=== PATIENT | female | born 1965 | race Caucasian/White ===

== ENCOUNTER 2016-09-08 19:53 | Emergency (ER) | payer OTHER ==
[2016-09-08 20:11] VITALS: BP 166/91; PULSE 92; RESP 18; TEMP 98.4; O2SAT 98
[2016-09-08] MEDS ORDERED: NS 500 ML IV ONE (20:11)
--- NOTE | 2016-09-08 20:11 | UCPHY ---
H & P Patient Type: New Chief Complaint Nursing Narrative: PT REPORTS FEELING COLD, CLAMMY. PT ALSO REPORTS NUMBNESS IN RIGHT FOREARM AND RIGHT LEG. PT REPORTS JAW PAIN. SYMPOTOMS ONSET 1729 WHILE WORKING OUT. HPI/ROS: HPI CHIEF COMPLAINT: Right-sided arm and leg tingling, right-sided arm and leg heaviness, abrupt in onset of 5:30 p.m. HISTORY OF PRESENT ILLNESS: This patient very pleasant 51-year-old female she denies any significant medical or surgical history does not take any daily medications, she presents to the urgent care by private vehicle with her family after she states she was working out on elliptical 5:30 p.m. she does this regularly. She comes to the Urgent Care complaining that while on the elliptical she felt as if she could not go any further and had to stop. She thought that maybe she needs to eat dinner blood sugar was low. She stopped her elliptical work out shortly after she noticed that her right arm and right leg were feeling heavy ear and tingling down that side she also felt some tingling in the right side of her face. She denies headache, nausea, vomiting. She does not appear very anxious. Of note on exam here in the urgent care promptly after arrival she is complaining of right arm or right leg heaviness and tingling. On exam her cranial nerves are intact, there is no focal neuro deficit that I can appreciate , she does complain of tingling right upper extremity right lower extremity she denies chest pain or shortness of breath. She does tell me that these feel heavier than left side. However I do not appreciate weakness. Given this patient is a young healthy lady with tingling in the right side of her face, right-sided arm, right-sided leg and heaviness in her right side of her body I am concerned this possibly be a very small stroke TIA versus CVA. It may be anxiety. Will perform a rapid EKG and IV will be established 911 will be called will ask for an ambulance to emergently transfer her to [facility] emergency room I will touch base with them. The is at bedside and so is children they understand. They are agreeable to go to transfer to [facility] emergency room by ambulance. Technically she is still in the window of tPA given that she is only 3 hours out. However her NIH stroke scale is very low here and it is unclear if this is truly a focal stroke. Upon arrival here to the urgent care the patient's NIH stroke scale of a 1 and this is due to for subjective heaviness of the right side and tingling or sensory deficit Right arm and right leg Past Medical History: denies medical history Past Surgical History: Denies surgical history Social History: Denies use of drugs alcohol tobacco products Family History:Noncontributory ROS REVIEW OF SYSTEMS: A comprehensive 10 point review of systems is otherwise negative aside from elements mentioned in the history of present illness. Exam Constitutional anxious-appearing, triage nursing summary reviewed, vital signs reviewed, awake/alert. Eyes normal conjunctivae and sclera, EOMI, PERRLA. HENT normal inspection, atraumatic, moist mucus membranes, no epistaxis, neck supple/ no meningismus, no raccoon eyes. Respiratory clear to auscultation bilaterally, normal breath sounds, no respiratory distress, no wheezing. Cardiovascular rate normal, regular rhythm, no murmur, no edema, distal pulses normal. Gastrointestinal soft, non-tender, no rebound, no guarding, normal bowel sounds, no distension, no pulsatile mass. Genitourinary no CVA tenderness. Musculoskeletal no midline vertebral tenderness, full range of motion, no calf swelling, no tenderness of extremities, no meningismus, good pulses, neurovascularly intact. Skin pink, warm, & dry, no rash, skin atraumatic. Neurologic this patient appears well, no focal neuro deficit, I do not appreciate a focal weakness on the right side however patient complains of heaviness in the right arm heaviness and right leg tingling the right side of the face tingling right arm and right leg, this is different from her left side. awake, alert and oriented x 3, AAOx3, moves all 4 extremities equally, motor intact, sensory intact, CN II-XII intact, normal cerebellar, normal vision , normal speech. Psychiatric normal mood/affect. Heme/Lymph/Immune no lymphadenopathy. Differential Diagnosis: includes but is not limited to in no particular acute anxiety, panic attack, TIA, CVA, electrolyte abnormality Medical Decision Making: The patient had an IV established be called for emergent ambulance transport to [facility] emergency room. I will notify [facility] ER attending that this patient is coming in. Patient had a quick EKG. And we will appropriately transfer this patient to [place]. Re-evaluation: 2030: this time I have spoke with [facility] Emergency room and spoke with the attending Dr. moe who agrees to accept this patient. She understands this patient be coming by ambulance to the emergency room. Again on exam I do not appreciate focal neuro deficit patient is complaining of heaviness right arm right leg and tingling. She needs CVA rule out. EKG interpretation by me on record in [employer] system. Impression the time of EKG 2026, this is sinus rhythm rate of 86 there is minimal motion artifact however I do not appreciate acute ischemic change. 2031: at this time ambulance has placed the patient back in the ambulance and is transported patient to [facility] emergency room. Source: Patient - Personal History Current Tetanus Diphtheria and Acellular Pertussis (TDAP): Yes - Medical/Surgical History Hx Asthma: No Hx Chronic Respiratory Disease: No Hx Diabetes: No Hx Cardiac Disease: No Hx Renal Disease: No Hx Cirrhosis: No Hx Alcoholism: No Hx HIV/AIDS: No Hx Splenectomy or Spleen Trauma: No Other PMH: TONSILECTOMY - Family History Significant Family History: No pertinent family hx - Social History Smoking Status: Never smoked Constitutional: Initial Vital Signs Temperature (C) 36.9 C 09/08/16 20:08 Heart Rate 92 09/08/16 20:08 Respiratory Rate 18 09/08/16 20:08 Blood Pressure 166/91 H 09/08/16 20:08 O2 Sat (%) 98 09/08/16 20:08 O2 Delivery Mode Room Air Allergies/Adverse Reactions: Penicillins Allergy (Verified 09/08/16 20:34) Home Medications: Medication Instructions Recorded Control 09/08/16 Medical Decision Making - Data Points Laboratory Results: 09/08/16 09/08/16 09/08/16 19:58 19:58 19:58 WBC Pending RBC Pending Hgb Pending Hct Pending MCV Pending MCH Pending MCHC Pending RDW Pending Plt Count Pending MPV Pending Neut % (Auto) Pending Lymph % (Auto) Pending Maries % (Auto) Pending Eos % (Auto) Pending Baso % (Auto) Pending Nucleat RBC Rel Count Pending Absolute Neuts (auto) Pending Absolute Lymphs (auto) Pending Absolute Monos (auto) Pending Absolute Eos (auto) Pending Absolute Basos (auto) Pending Absolute Nucleated RBC Pending Immature Gran % Pending Immature Gran # Pending PT Pending INR Pending APTT Pending D-Dimer Pending Sodium Pending Potassium Pending Chloride Pending Carbon Dioxide Pending Anion Gap Pending BUN Pending Creatinine Pending Estimated GFR Pending Glucose Pending Calcium Pending Magnesium Pending Total Bilirubin Pending Conjugated Bilirubin Pending Unconjugated Bilirubin Pending AST Pending ALT Pending Alkaline Phosphatase Pending NT-Pro-B Natriuret Pep Pending Total Protein Pending Albumin Pending Lipase Pending Departure - Departure Disposition: Acute Care Hospital Not [facility] Clinical Impression: Tingling of right arm and right side of face Condition: Fair - PQRS PQRS Measurement: n/a
--- NOTE | 2016-09-08 20:28 | CPEKG ---
Heart Rate: 86 RR Interval: 698 P-R Interval: 127 QRSD Interval: 94 QT Interval: 376 QTC Interval: 450 P Sayre: 0 QRS Sayre: 46 T Wave Sayre: 16 EKG Severity - ABNORMAL ECG - EKG Impression: SINUS RHYTHM EKG Impression: CONSIDER ANTEROSEPTAL INFARCT EKG Impression: MODERATE BASELINE ARTIFACT Electronically Signed By: Garett Sanchez 09-Sep-2016 08:47:40
== END 2016-09-08 20:32 | disposition short-term general hospital (02) ==
LOC: CED 19:53
DX: R94.31 Abnormal electrocardiogram [ECG] [EKG] (principal); R20.0 Anesthesia of skin; R20.2 Paresthesia of skin; R68.84 Jaw pain
CPT/HCPCS: 93010-PO; 99205-PO; G0463-PO

== ENCOUNTER → 2017-07-01 | Outpatient (CLI) | payer OTHER | LOC: CIMAGING 10:29 | PROVIDERS: ATTEND Family Medicine | DX: Z12.31 Encounter for screening mammogram for malignant neoplasm of breast (principal) | CPT/HCPCS: G0202 ==

== ENCOUNTER → 2018-08-25 | Outpatient (CLI) | payer OTHER | LOC: CIMAGING 08:58 | PROVIDERS: ATTEND Family Medicine | DX: Z12.31 Encounter for screening mammogram for malignant neoplasm of breast (principal); Z80.3 Family history of malignant neoplasm of breast ==